=== PATIENT | female | born 1955 | race Caucasian/White ===

== ENCOUNTER → 2018-01-31 13:10 | Outpatient (CLI) | payer BC, SELFPAY ==
--- NOTE | 2018-01-31 13:13 | RAD_ITS ---
STUDY: X-RAY - LEFT KNEE REASON FOR EXAM: Female, 62 years old. Atraumatic left knee pain. TECHNIQUE: 4 view(s) of the knee. COMPARISON: None. FINDINGS: Normal visualized distal femur. Normal visualized proximal tibia and fibula. Normal proximal tibiofibular articulation. Normal medial femorotibial compartment. Normal lateral femorotibial compartment. There is slight lateral tilt of the patella with narrowing of the lateral patellofemoral compartment. There is a small joint effusion. 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 Electronically Signed: Sean Arellano MD at 11:12 EDT , Service support ,
[2018-01-31 15:46] LABS: Absolute Lymphocyte Count 2.44 X10^3/ul (0.83-4.51); Absolute Neutrophil Count 4.1 X10^3/uL (2.0-7.7); Basophil# 0.06 X10^3/uL; Basophil% 0.8 % (0-1); Eosinophil# 0.06 X10^3/uL; Eosinophils% 0.8 % (0-5); Hematocrit 41.7 % (37-47); Hemoglobin 14.2 g/dl (12.0-15.0); Lymphocyte # 2.44 X10^3/ul (4.0); Lymphocyte % 33.1 % (19-41); Mean Corp Hgb Conc 34.1 g/gl (32-36); Mean Corpuscular Hgb 31.9 pg (27.0-32.0); Mean Corpuscular Volume 93.7 fL (81-99); Monocyte# 0.75 X10^3/uL; Monocyte% 10.2 % (0-10); Neutrophil # 4.05 X10^3/uL (2.7-7.7); Platelet Count 282 K/mm3 (150-450); RBC Distribution Width CV 14.5 % (11.6-14.6); Red Blood Count 4.45 M/mm3 (4.2-5.4); White Blood Count 7.4 K/mm3 (4.4-11.0)
[2018-01-31 15:53] LABS: POSITIVE COUNT NO; POSITIVE DIFFERENTIAL NO; POSITIVE MORPHOLOGY NO
[2018-01-31 15:59] LABS: Erythrocyte Sedimentation Rate 23 mm/hr (0-30)
[2018-01-31 16:02] LABS: CRP < 2.90 mg/L (0.0-3.0)
[2018-01-31 21:00] LABS: Pathologist Comment May follow
[2018-01-31 21:24] LABS: Synovial Fld Mononuclear WBC % 94.5 %; Synovial Fld Polynuclear WBC # 0.033 10^3/ul; Synovial Fld Polynuclear WBC % 5.5 %
[2018-01-31 21:27] LABS: AUTO B FLUID DILUENT BKGD CT WBC <0.1 RBC <0.01 (W<.1,R<.01); CRYSTALS, BODY FLUID Other, see comment; Color / Synovial Fluid Yellow (Pale Yellow); Source / Synovial Fluid LEFT KNEE; Source- Body Fluid SYNOVIAL
[2018-01-31 21:28] LABS: Appearance /Synovial Fluid Sl Cl (CLEAR); RBC /Synovial Fluid 425 /mm3 (0)
[2018-01-31 21:29] LABS: Lymph 15 %; Neutrophil 4 % (0-25); Other Cell /Synovial Fluid 9 %; Synovial Fld Mononuclear WBC # 0.572 10^3/ul
[2018-01-31 21:30] LABS: Monocyte /Synovial Fluid 72 %
[2018-02-01 13:47] LABS: Lyme Ab Screen Interpretation REF LAB
[2018-02-04 14:20] LABS: Pathologist Review Reviewed
[2018-02-05 11:18] LABS: ANTINUCLEAR ANTIBODIES DIRECT Negative (Negative)
[2018-02-05 11:28] LABS: GLUCOSE, SYNOVIAL FLUID 108 mg/dL (.); Lyme Scn Total Ab w/Rflx <0.91 ISR (0.00-0.90); PROTEIN, SYNOVIAL FLUID 4.6 g/dL (.)
== END ==
PROVIDERS: Family Provider Family Medicine; PCP Family Medicine; Visit Provider Orthopaedic Surgery
DX: M25.562 Pain in left knee (principal); M25.462 Effusion, left knee
CPT/HCPCS: 36415; 73564; 82945; 84157; 85025; 85652; 86038; 86140; 86431; 86618; 87070; 87075; 87205; 89050; 89051; 89060

== ENCOUNTER → 2018-02-19 13:54 | Outpatient (CLI) | payer BC, SELFPAY ==
[2018-02-19 13:56] LABS: Pathologist Comment May follow
[2018-02-19 14:50] LABS: RBC /Synovial Fluid 0.002 10^6/uL (0); Synovial Fld Polynuclear WBC # 0.093 10^3/ul
[2018-02-19 14:58] LABS: AUTO B FLUID DILUENT BKGD CT WBC <0.1 RBC <0.01 (W<.1,R<.01); Source- Body Fluid SYNOVIAL
[2018-02-19 14:59] LABS: Appearance /Synovial Fluid Sl Cl (CLEAR); Color / Synovial Fluid Yellow (Pale Yellow); Source / Synovial Fluid LEFT KNEE
[2018-02-19 15:34] LABS: Lymph 40 %; Neutrophil 60 % (0-25)
[2018-02-19 15:35] LABS: Body Fluid QC Type(s) BF1Q,BF2Q
[2018-02-20 09:31] LABS: Pathologist Review Reviewed
== END ==
PROVIDERS: Family Provider Family Medicine; Visit Provider Orthopaedic Surgery
DX: M25.462 Effusion, left knee (principal); S83.242A Other tear of medial meniscus, current injury, left knee, initial encounter; X58.XXXA Exposure to other specified factors, initial encounter; Y93.9 Activity, unspecified; Y92.9 Unspecified place or not applicable; Y99.9 Unspecified external cause status
CPT/HCPCS: 87070; 87075; 87205; 89050; 89051; 89060

== ENCOUNTER 2018-04-08 12:30 | Outpatient (RCR) | payer BC, SELFPAY ==
--- NOTE | 2018-03-11 12:14 | HP.PTEVAL_ITS ---
Patient's Visit Information DIAN CHADWICK is a 62 year old F referred to Physical Therapy by Shelly Akins DO with a diagnosis of L knee meniscal tear. Date of Evaluation: 03/11/18 Physical Therapist: Bennett Galdamez PT, - Visit Plan Frequency: 2-3x /Week Duration: 4-6 Weeks Plan: L LE strengthening, balance and proprio, core strengthening, nustep, and HEP - Subjective Subjective: Pt uses ibuprofen and tylenol to decrease pain. Insidious onset of L knee pain a few months ago. No previous hx of injury to L knee. There was swelling and Dr. Akins took off 60 cc of fluid out of knee. Xrays were done. Insurance requires conservative treatment before ordering a MRI. Pt is retired. Standing, sitting, and squating cause pain. Pain at rest is 9/10. In the last ten days, pain has been 10/10 when walking or being on LE for prolonged periods of time. Pt reports popping feeling when walking down stairs. Patient has difficulty sleeping due to pain and walking up and down stairs in her apartment. - Pain L Knee Pain Pain Intensity (Out of 10): 9 Pain Intensity Range: 10 - Objective Neuro: B LE sensation is WNL to light touch. Palpation: Crepitus present with AROM in L knee. Pain on med joint line. No obvious deformity. Girth at joint line: R knee 35 cm, L knee 37 cm. ROM: R knee 0-117; L knee 0-4-113. MMT: L knee 5/5 throughout. L knee flex= 4+/5, ext= 4-/5. Special test: Pos mcmurrays test - Goals Goal 1:: Decrease L knee pain x 50% to aid with sleep Goal Time Frame: 4-6 Weeks Goal 2:: Increase L knee strength x 1 grade to aid with stair negotiation Goal Time Frame: 4-6 Weeks Goal 3:: Increase L knee ROM x 4-5 degrees to aid with decreasing pain Goal Time Frame: 4-6 Weeks Goal 4:: I with HEP Goal Time Frame: 4-6 Weeks - Rehabilitation Potential Physical Therapy Diagnosis: L knee weakness, limited ROM, and diff with gait secondary to a L knee med meniscal tear Rehabilitation Potential: Good - Anticipated Interventions Patient/Client Instruction: Educate patient on: Condition, Plan of Care For the Purpose of:: To improve self management Therapeutic Exercise to Include: Strength training, Endurance training, Balance training, Flexibilty training, Active ROM For the Purpose of:: To decrease pain, To increase ROM, To improve muscle performance and motor function Cryotherapy (ice pack, ice massage): Yes For the Purpose of:: To decrease pain Thank you for the opportunity to evaluate your patient. For Medicare and Medicare HMO plans, please review the plan of care and approve it. It will need to be FAXED BACK to us at [phone] for Medicare purposes. Please let me know if there are questions or concerns regarding this plan of care. Physician Signature: Date:
--- NOTE | 2018-04-08 12:30 | DT_ITS ---
This patient was seen during an EMR downtime April 01, 2018 - April 08, 2018. This patient may have a combination of paper and electronic documentation or all paper documentation. All documentation is viewable within the e-chart portion of [facility] for each patient visit.
--- NOTE | 2018-06-05 07:25 | HP.PTDCSUM_ITS ---
HP - PT D/C Summary It has been my pleasure to treat DIAN CHADWICK under orders from Shelly Akins DO, for the diagnosis of L knee meniscal tear for a total of 7 visit (s). Discharge Date: Please see the following information for a summary of their discharge status. - Subjective Subjective: No better at this time. This is a waste of time - Pain L Knee Pain Pain Intensity (Out of 10): 8 - Objective Objective/Function: L knee ROM: 0-50-90. L knee MMT: flex and ext are 4-/5 and painful. Pt has not made any progress with pain, ROM, strength - Goals Goal 1:: Decrease L knee pain x 50% to aid with sleep Goal 2:: Increase L knee strength x 1 grade to aid with stair negotiation Goal 3:: Increase L knee ROM x 4-5 degrees to aid with decreasing pain Goal 4:: I with HEP - Plan Plan: Discontinue, RTD - D/C Information If there are questions or concerns regarding this patient's physical therapy, please feel free to call me at [phone]. Thank you for the referral of this patient. Sincerely, Bennett Galdamez, PT,
== END 2018-04-08 19:00 | disposition home or self-care (01) ==
LOC: PT 12:30
PROVIDERS: Family Provider Family Medicine; PCP Family Medicine; Visit Provider Orthopaedic Surgery
DX: S83.242D Other tear of medial meniscus, current injury, left knee, subsequent encounter (principal)
CPT/HCPCS: 97016; 97110; 97161; 97530

== ENCOUNTER → 2018-04-25 18:34 | Outpatient (CLI) | payer BC, SELFPAY ==
[2018-04-25 18:40] LABS: Pathologist Comment May follow
[2018-04-25 19:21] LABS: Synovial Fld Mononuclear WBC % 86.1 %; Synovial Fld Polynuclear WBC # 0.052 10^3/ul; Synovial Fld Polynuclear WBC % 13.9 %
[2018-04-25 21:22] LABS: AUTO B FLUID DILUENT BKGD CT WBC <0.1 RBC <0.01 (W<.1,R<.01); Appearance /Synovial Fluid Sl hazy (CLEAR); Color / Synovial Fluid Yellow (Pale Yellow); RBC /Synovial Fluid 659 /mm3 (0); Source / Synovial Fluid LEFT KNEE; Source- Body Fluid SYNOVIAL; Synovial Fld Mononuclear WBC # 0.322 10^3/ul
[2018-04-25 21:23] LABS: Lymph 37 %; Monocyte /Synovial Fluid 8 %; Neutrophil 20 % (0-25); Other Cell /Synovial Fluid 35 %
[2018-04-25 21:25] LABS: Body Fluid QC Type(s) BF1Q,BF2Q
[2018-04-26 13:18] LABS: Pathologist Review Reviewed
== END ==
PROVIDERS: Family Provider Family Medicine; PCP Family Medicine; Visit Provider Orthopaedic Surgery
DX: M25.462 Effusion, left knee (principal)
CPT/HCPCS: 87070; 87075; 87205; 89050; 89051; 89060

== ENCOUNTER → 2018-05-20 12:30 | Outpatient (CLI) | payer BC, SELFPAY ==
--- NOTE | 2018-05-20 12:32 | MRI_ITS ---
STUDY: MRI LEFT KNEE REASON FOR EXAM: Medial pain for 2 months, no specific injury. TECHNIQUE: Standardized fat and water weighted pulse sequences were obtained in all 3 orthogonal planes. COMPARISON: Radiographs 01/31/2018. FINDINGS: Normal medial meniscus. There is arthrosis of the medial femorotibial compartment with partial-thickness chondral loss (T2 sagittal image 8). There is a small subchondral stress fracture of the medial tibial plateau with bone edema (T2 coronal image 17; T2 sagittal image 6). Normal medial collateral ligamentous complex (MCL). Normal distal semimembranosus, gracilis and semitendinosus tendons. Normal lateral meniscus. Normal hyaline cartilage of the lateral femorotibial compartment. Normal lateral femoral condyle and tibial plateau. Normal proximal tibiofibular articulation. Normal lateral collateral (fibular) ligament. Normal popliteus tendon. Normal biceps femoris tendon. Normal anterior cruciate ligament (ACL). Normal posterior cruciate ligament (PCL). Normal congruent patellofemoral articulation. Normal hyaline cartilage of the patellofemoral compartment. Normal medial and lateral patellar retinaculum. Normal quadriceps tendon. Normal patellar tendon. Normal Hoffa's fat pad. There is a small joint effusion. The soft tissues are unremarkable. The otherwise visualized osseous structures are unremarkable. MRI/Lower Ext Joint Only (Routine) IMPRESSION: Small subchondral stress fracture of the medial tibial plateau. Arthrosis of the medial femorotibial compartment. Small joint effusion. No demonstrated medial meniscal tear. Electronically Signed: Dell Serrano MD at 13:59 EDT Tel , Service support ,
== END ==
PROVIDERS: Family Provider Family Medicine; PCP Family Medicine; Visit Provider Orthopaedic Surgery
DX: S83.242A Other tear of medial meniscus, current injury, left knee, initial encounter (principal); M25.462 Effusion, left knee; X58.XXXA Exposure to other specified factors, initial encounter; Y93.9 Activity, unspecified; Y92.9 Unspecified place or not applicable; Y99.9 Unspecified external cause status
CPT/HCPCS: 73721